=== PATIENT | female | born 1980 | race Caucasian/White ===

== ENCOUNTER 2018-05-11 19:41 | Observation (INO) | payer OTHER ==
[~2018-05-11] VITALS: Ht 162.6 cm; Wt 72.1 kg
[2018-05-11 20:54] VITALS: BP 103/63
[2018-05-11] MEDS ORDERED: PREN1TAB80 PO (21:17)
[2018-05-11 21:44] LABS: GLUCOMETER DEV NAME(LOC) 4S 8; GLUCOSE,POINT OF CARE 100 MG/DL (70-110)
== END 2018-05-11 21:20 | disposition home or self-care (01) ==
LOC: 4S 19:41
PROVIDERS: ADMIT Obstetrics & Gynecology; ATTEND Obstetrics & Gynecology
DX: O36.8130 Decreased fetal movements, third trimester, not applicable or unspecified (principal); O62.9 Abnormality of forces of labor, unspecified; O24.419 Gestational diabetes mellitus in pregnancy, unspecified control; O09.523 Supervision of elderly multigravida, third trimester; Z3A.39 39 weeks gestation of pregnancy
CPT/HCPCS: 59025; 82962; G0378

== ENCOUNTER 2018-05-16 05:09 | Inpatient (IN) | payer OTHER ==
[~2018-05-16] VITALS: Ht 162.6 cm; Wt 71.2 kg
[~2018-05-16 05:09] MED LIST: PREN1TAB80 PO
[2018-05-16] MEDS ORDERED: RINGERS SOLUTION,LACTATED 1,000 ML IV PRN (05:34)
[2018-05-16] MEDS ORDERED: OXYTOCIN 30 UNITS/LACT RINGERS 500 ML IV ONE (05:34)
[2018-05-16] MEDS ORDERED: FentaNYL CITRATE-PF 100 MCG/2 ML VIAL IVP PRN (05:45)
[2018-05-16] MEDS ORDERED: CITRIC ACID/SODIUM CITRATE 30 ML SOLUTION UDCUP PO PRN (05:45)
[2018-05-16] MEDS ORDERED: METOCLOPRAMIDE HCL 5 MG/ML 2 ML VIAL IVP PRN (05:45)
[2018-05-16 06:08] LABS: BASOPHILS % (AUTO) 0.4 % (0.0-2.0); EOSINOPHILS % (AUTO) 0.5 % (1.0-6.0); HEMATOCRIT 37.2 % (36-46); HEMOGLOBIN 12.6 g/dL (12.0-16.0); LYMPHOCYTES # (AUTO) 1.9 K/uL (1.0-4.8); LYMPHOCYTES % (AUTO) 18.3 % (22.0-44.0); MEAN CORPUSCULAR HEMOGLOBIN 31.1 pg (26.0-34.0); MEAN CORPUSCULAR HGB CONC 33.9 G/dL (31.0-37.0); MEAN CORPUSCULAR VOLUME 92 fL (80-100); MONOCYTES # (AUTO) 0.6 K/uL (0.1-1.0); MONOCYTES % (AUTO) 6.3 % (2.0-9.0); NEUTROPHILS # (AUTO) 7.7 K/uL (1.8-7.7); NEUTROPHILS % (AUTO) 74.5 % (40.0-70.0); PLATELET COUNT (AUTO)-OB 143 K/uL (150-450); RED BLOOD CELL COUNT(AUTO) 4.06 MIL/uL (4.00-5.20)
[2018-05-16] MEDS ORDERED: ROPIVACAINE HCL/PF 0.2% 100 ML ED ONE (06:51)
[2018-05-16] MEDS: RINGERS SOLUTION,LACTATED 1,000 ML IV SCH ×2 (07:50→14:21)
[2018-05-16] MEDS ORDERED: OXYGEN THERAPY IH SCH (08:00)
[2018-05-16 08:49] VITALS: BP 107/51
[2018-05-16] MEDS ORDERED: BENZOCAINE 20%/MENTHOL 56 GM SPRAY CANISTER TP PRN (16:00)
[2018-05-16] MEDS ORDERED: GLYCERIN/WITCH HAZEL LEAF 40 PADS JAR TP PRN (16:00)
[2018-05-16] MEDS ORDERED: LANOLIN 7 GM OINTMENT TP PRN (16:00)
[2018-05-16] MEDS ORDERED: ACETAMINOPHEN/CODEINE 300-30 MG TABLET PO PRN (16:00)
[2018-05-16] MEDS: IBUPROFEN 800 MG TABLET PO SCH ×2 (17:16→23:12)
[2018-05-16] MEDS: MAGNESIUM HYDROXIDE SUSPENSION 30 ML UDCUP PO SCH (21:10)
[2018-05-16] MEDS: ACETAMINOPHEN/CODEINE 300-30 MG TABLET PO PRN (21:12)
[2018-05-17] MEDS: IBUPROFEN 800 MG TABLET PO SCH ×2 (05:42→12:26)
[2018-05-17] MEDS: ACETAMINOPHEN/CODEINE 300-30 MG TABLET PO PRN (08:40)
[2018-05-17] MEDS: MAGNESIUM HYDROXIDE SUSPENSION 30 ML UDCUP PO SCH (08:40)
[2018-05-17] MEDS ORDERED: IBUP-2070 PO (10:22)
== END 2018-05-17 16:10 | disposition home or self-care (01) | DRG 775 ==
LOC: OBSVTOIN 05:09 → 4S 05:09
PROVIDERS: ADMIT Obstetrics & Gynecology; ATTEND Obstetrics & Gynecology
PROC: 10D07Z6 Extraction of Products of Conception, Vacuum, Via Natural or Artificial Opening (ICD-10-PCS; principal; 2018-05-16)
PROC: 0HQ9XZZ Repair Perineum Skin, External Approach (ICD-10-PCS; 2018-05-16)
PROC: 3E0R3BZ Introduction of Anesthetic Agent into Spinal Canal, Percutaneous Approach (ICD-10-PCS; 2018-05-16)
PROC: 00HU33Z Insertion of Infusion Device into Spinal Canal, Percutaneous Approach (ICD-10-PCS; 2018-05-16)
DX: O77.0 Labor and delivery complicated by meconium in amniotic fluid (principal); O70.0 First degree perineal laceration during delivery; Z37.0 Single live birth; Z3A.40 40 weeks gestation of pregnancy; O09.523 Supervision of elderly multigravida, third trimester
CPT/HCPCS: 86850; 86900; 86901; J2590; J2795; J7120